=== PATIENT | female | born 1950 | race Caucasian/White ===

== ENCOUNTER 2021-12-21 13:30 | Outpatient (RCR) | payer MEDICARE, OTHER, SELFPAY ==
--- NOTE | 2021-11-25 08:12 | STOPEVAL ---
VOICE EVALUATION Thank you for referring Yesica Deshpande to [facility].? The patient is scheduled to be seen for therapy? 2x/week for 4 weeks. Please review, sign, date and return this plan of care JB. I agree with and certify that the following plan of care is medically necessary. Referring Physician Date Attending Provider: Ernie Marie MD Referring Provider: Ernie Marie MD Therapy Assessment Status Assessment Status Assessment Status Evaluation Outpatient Past Medical History Past Medical History Source of Past Medical History Patient Pain Assessment Timing of Pain Assessment Timing of Pain Assessment Assessment Self Report Self Report Pain Level 0 Pain Score Pain Score 0: Self Report Voice Evaluation Voice History Voice History The patient reports that she has a scratchy throat and her voice is not as loud as it had been. Patient stated that she likes to sing in the car but I can't reach those notes and I can't hardly sing unless it is low. 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 Very hard to hit the higher notes. She reports that Dr. Marie found that her vocal cords had issues, more than just normal aging. She reports she frequently has to clear her throat. More recent realization that voice is change. Sounds scratchy , drinks a lot of water, sinus issues/ allergies. Lisinopril. Onset & Duration of Problem Over time Laryngeal Pain No Better Situations Patient reported that she can talk most of the time and people can hear her. Worse Situations for Voice Use Most noticeable when she tries to sing or in the evening when she has been talking a lot. Description of Daily Voice Use Typical day, talk to . Does not sing unless driving or working around the house. 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 Provider Consulted No Allergies Yes History of Trauma/Injury to the No Laryngea
--- NOTE | 2021-12-21 14:56 | STOPEVAL ---
PROGRESS NOTE AND DISCHARGE SUMMARY Thank you for referring Yesica Deshpande to [facility].? This patient is being discharged at this time due to achieving goals and home program established. I agree with and certify that I am aware of patient's discharge from Speech Therapy. Referring Physician Date Attending Provider: Ernie Marie MD Referring Provider: Ernie Marie MD Therapy Assessment Status Assessment Status Assessment Status Discharge Outpatient Past Medical History Past Medical History Source of Past Medical History Patient Pain Assessment Timing of Pain Assessment Timing of Pain Assessment Pre-Treatment Self Report Self Report Pain Level 0 Pain Score Pain Score 0: Self Report ST Clinical Summary Clinical Summary ST Clinical Summary This patient was seen for an initial Voice Evaluation and three treatment sessions to address dysphonia. She was instructed in the use of vocal hygiene program and gastroesophageal reflux disease precautions; she voiced and demonstrated good understanding of each of these and based on a checklist she read, determined that she felt GERD had contributed to her hoarse voice. She also was instructed in respiration/ phonation coordination tasks and relaxation techniques for the larynx and neck areas and voiced good understanding of these tasks, also reporting that she felt they had been helpful in reducing the tension in her voice and neck. Patient was also instructed to practice elevating her pitch when speaking and found that successful. Initially she sustained an ah sound for a range of 8.3 seconds to 15.0 with a decibel level range of 67-69, and frequency range of 172-184. Today she sustained an ah sound for 18.8 seconds, with a decibel average of 77, and a frequency average of 228 hz. Patient reports she feels her
== END 2021-12-22 09:41 | disposition home or self-care (01) ==
LOC: ANHST 13:30
PROVIDERS: PCP Family Medicine; Referring Provider Otolaryngology; Visit Provider Otolaryngology
DX: R49.0 Dysphonia (principal); J38.7 Other diseases of larynx
CPT/HCPCS: 92507; 92524

== ENCOUNTER 2023-02-06 11:51 | Outpatient (CLI) | payer MEDICARE, OTHER, SELFPAY ==
[2023-02-06 14:36] LABS: Basophils Absolute Auto 0.1 K/mm3 (0.0-0.1); Basophils Percent Auto 0.8 % (0.2-1.2); Eosinophils Absolute Auto 0.2 K/mm3 (0-0.3); Eosinophils Percent Auto 2.1 % (0-4.4); Hematocrit 39.3 % (37.0-47.0); Immature Granulocyte Absolute 0.02 K/mm3 (0.00-0.031); Immature Granulocyte Percent A 0.3 % (0-0.5); Lymphocytes Absolute Auto 2.33 K/mm3 (0.9-3.2); Mean Corpuscular HGB Conc 33.1 g/dl (32-36); Mean Corpuscular Volume 93.6 fl (80-100); Mean Platelet Volume 9.2 fl (7.4-10.4); Monocytes Absolute Auto 0.7 K/mm3 (0.1-0.6); Monocytes Percent Auto 10.2 % (2.6-8.5); Neutrophils Absolute Auto 3.8 K/mm3 (1.3-6.7); Neutrophils Percent Auto 53.6 % (45.5-73.1); Platelet Count Result 268 k/mm3 (150-375); Red Cell Distribution Width 12.3 % (11.5-14.5); White Blood Count 7.1 K/mm3 (4.5-10.0)
[2023-02-06 14:45] LABS: INR 0.9
[2023-02-06 14:46] LABS: Partial Thromboplastin Time 27.9 SECONDS (22.3-36.8)
[2023-02-06 14:49] LABS: Alanine Aminotransferase 59 U/L (6-35); Albumin Level 4.2 g/dL (3.5-5.1); Alkaline Phosphatase 48 U/L (38-126); Anion Gap 7 mmol/L (8-16); Aspartate Amino Transferase 49 U/L (14-36); Bilirubin,Total 0.3 mg/dL (0.2-1.3); Blood Urea Nitrogen 17 mg/dL (7-17); Calcium 8.9 mg/dL (8.4-10.2); Carbon Dioxide 28 mmol/L (22-30); Chloride 104 mmol/L (98-107); Estimated Glomerular Filt Rate > 60; Glucose 74 mg/dL (65-110); Sodium 139 mmol/L (137-145)
== END 2023-02-06 11:52 | disposition home or self-care (01) ==
LOC: ANHSURGERY 11:58
PROVIDERS: PCP Family Medicine; Visit Provider Urology
DX: N81.3 Complete uterovaginal prolapse (principal); Z01.818 Encounter for other preprocedural examination
CPT/HCPCS: 36415; 80053; 85025; 85610; 85730; 86850; 86900; 86901

== ENCOUNTER 2023-02-13 00:49 | Day surgery (SDC) | payer MEDICARE, OTHER, SELFPAY ==
[2023-02-06 12:31] VITALS: BMI 27.7
--- NOTE | 2023-02-06 12:47 | PC.NURSE ---
Report to the Outpatient Waiting Room, entrance under the green pavilion located off [facility], at time __6:00AM on date __02/13/23 . Planned Procedure Time: __7:30AM . Time changes happen often and if your time is changed the preop area will call you the afternoon before. - You and your visitor will be asked to self-screen and do not enter if you have any COVID symptoms. - A mask is optional within the hospital at this time. Patients may have clear liquids (water, carbonated beverages, clear teas, apple juice) until 3 hours prior to surgery with a maximum of 20 ounces. - No food from midnight until time of surgery Take the following medications with a SIP of water the morning of surgery: ___METOPROLOL, EYE DROPS DO NOT STOP ANY OF YOUR OTHER PRESCRIPTION MEDICATIONS PRIOR TO SURGERY ?EXCEPT THE FOLLOWING Medications to discontinue per physician ___HOLD ALL VITAMINS/SUPPLEMENTS 3 DAYS PRE-OP PER ANESTHESIA Date to take last dose____02/09/23 Please no make-up, nail wolof, hairspray, perfume, deodorant, or body powder the day of surgery. No jewelry (including any body piercings) or valuables the day of surgery, leave them at home. Please take a shower or bath the night before, or the morning of, surgery with an antibacterial soap. Wear comfortable, loose fitting clothing. Children are encouraged to wear pajamas. - Jewelry must be removed prior to entering the operating room. Rings and piercings that are not removed may be cut off. - The hospital will not accept responsibility for valuables. - Please leave all valuables, including medications, at home the day of surgery. If you are going home after surgery, a licensed helper driver must drive you home. - NO public transportation without another adult if you receive anesthesia. - We recommend that an adult stay with you for 24 hours following discharge. - We also recommend that you do not drive, make important decision, drink alcoholic beverages, or take any drugs that were not prescribed by your health care provider for at least 24 hours after your discharge time. Follow any additional instructions given to you from your surgeon. If you or anyone in your household have experienced Covid symptoms in the past week, please notify your surgeon or the nurse liaison at the phone number below for possible testing. Telephone instructions given to __PATIENT and asked if any additional questions and then verbalized understanding. Patient advised to call surgeon office or pre surgery nurse liaison [phone] if any additional questions.
--- NOTE | 2023-02-08 07:54 | PM.IMHP ---
H&P: HPI History of Present Illness Date/Time: 02/08/23 07:54 Chief Complaint: Pelvic prolapse Narrative: A 73-year-old female admitted for supracervical hysterectomy bilateral salpingo being oophorectomy robotically secondary to uterine prolapse. She will undergo sacral colpopexy with Dr. De La Torre and possibly slip a sling due to stress incontinence. Risks and benefits reviewed in great detail. She had all questions answered and asked to proceed PMFSH Past Medical History Medical History Biliary and gallbladder disorder Family History Family History Mother Diabetes mellitus Hypertension Grandparent Cerebrovascular accident Social History Social History Smoking status: Never smoker Alcohol intake: current Drinks per week: 1 Substance use: never Living arrangements: with family Additional living arrangements comments: HUSB Spiritual care concerns: No Meds Home Medications and Allergies Home Medications Medication Instructions Recorded Confirmed Type cyclosporine 0.05 % eye drops 1 drp EACH EYE Q12H 10/14/21 02/06/23 History (Restasis MultiDose) doxycycline hyclate 50 mg tablet 50 mg PO BID 10/14/21 02/06/23 History lisinopril 40 mg tablet 40 mg PO HS 10/14/21 02/06/23 History metoprolol succinate 25 mg 25 mg PO QAM 10/14/21 02/06/23 History tablet,extended release 24 hr omeprazole 40 mg capsule,delayed 40 mg PO HS 10/14/21 02/06/23 History release ascorbic acid (vitamin C) 500 mg 250 mg PO DAILY 02/06/23 02/06/23 History tablet calcium citrate 315 mg-vitamin D3 1 tablet PO DAILY 02/06/23 02/06/23 History 5 mcg (200 unit) tablet carboxymethylcellulose sodium 0.25 1 drp EACH EYE 4-6XD PRN Dry Eye(S) 02/06/23 02/06/23 History % eye drops in a dropperette (TheraTears) denosumab 60 mg/mL subcutaneous 60 mg subcut [id number] 02/06/23 02/06/23 History syringe (Prolia) estradiol 0.01% (0.1 mg/gram) 0.1 applic vaginal 3XW 02/06/23 02/06/23 History vaginal cream magnesium 250 mg tablet 250 mg PO DAILY 02/06/23 02/06/23 History witufanbdyae-lsusiien-WD-omega 1 cap PO DAILY 02/06/23 02/06/23 History 3,6,9 #3 400 mcg capsule polyethylene glycol 3350 17 17 g PO DAILY 02/06/23 02/06/23 History gram/dose oral powder (Miralax) varenicline 0.03 mg/spray nasal 1 spray intranasal DAILY 02/06/23 02/06/23 History spray (Tyrvaya) vit A 7,160 unit-vit C 113 mg-vit 2 tablet PO DAILY 02/06/23 02/06/23 History E 100 qumo-sotz-bnowtl tablet Allergies Allergy/AdvReac Type Severity Reaction Status Date / Time hydrochlorothiazide Allergy Unknown Verified 02/06/23 12:14 hylan G-F 20 [From Synvisc] Allergy PAIN, Verified 02/06/23 12:14 SWELLING AT KNEE JOINT WHERE INJECTIONED lifitegrast [From Xiidra] Allergy REDNESS, Verified 02/06/23 12:14 SWELLING, PAIN AT EYE nitrofurantoin Allergy Unknown Verified 02/06/23 12:14 [From Macrobid] hydrocodone AdvReac Flushing Verified 02/06/23 12:14 NSAIDS (Non-Steroidal AdvReac AVOIDS R/T Verified 02/06/23 12:14 Anti-Inflamma KIDNEY FUNCTION demerol AdvReac Unknown Vomiting Uncoded 02/06/23 12:14 Exam Const: General: cooperative, healthy appearing, comfortable and average body habitus Orientation/consciousness: oriented to person, oriented to place and oriented to time HENMT: Head: normal to inspection Resp: Effort & Inspection: normal respiratory effort Cardio: Rate: regular rate Rhythm: regular rhythm Heart sounds: S1 normal heart sound present and S2 normal heart sound present GI: Inspection: normal to inspection : External Female Exam: normal external appearance (Uterine prolapse noted.) Speculum Exam - Cervix: normal appearance of the cervix Bimanual exam- vagina & uterus: soft Bimanual
--- NOTE | 2023-02-10 10:46 | PM.IMHP ---
H&P: HPI History of Present Illness Date/Time: 02/10/23 10:46 Chief Complaint: Pelvic organ prolapse Narrative: 73-year-old with uterine prolapse. She uses a pessary. This is not satisfactory for her. She has stress incontinence on urodynamic Review of Systems Review of Systems: All systems reviewed & are unremarkable except as noted in HPI and below PMFSH Past Medical History Medical History Biliary and gallbladder disorder Family History Family History Mother Diabetes mellitus Hypertension Grandparent Cerebrovascular accident Social History Social History Smoking status: Never smoker Alcohol intake: current Drinks per week: 1 Substance use: never Living arrangements: with family Additional living arrangements comments: GEE Spiritual care concerns: No Meds Home Medications and Allergies Home Medications Medication Instructions Recorded Confirmed Type cyclosporine 0.05 % eye drops 1 drp EACH EYE Q12H 10/14/21 02/06/23 History (Restasis MultiDose) doxycycline hyclate 50 mg tablet 50 mg PO BID 10/14/21 02/06/23 History lisinopril 40 mg tablet 40 mg PO HS 10/14/21 02/06/23 History metoprolol succinate 25 mg 25 mg PO QAM 10/14/21 02/06/23 History tablet,extended release 24 hr omeprazole 40 mg capsule,delayed 40 mg PO HS 10/14/21 02/06/23 History release ascorbic acid (vitamin C) 500 mg 250 mg PO DAILY 02/06/23 02/06/23 History tablet calcium citrate 315 mg-vitamin D3 1 tablet PO DAILY 02/06/23 02/06/23 History 5 mcg (200 unit) tablet carboxymethylcellulose sodium 0.25 1 drp EACH EYE 4-6XD PRN Dry Eye(S) 02/06/23 02/06/23 History % eye drops in a dropperette (TheraTears) denosumab 60 mg/mL subcutaneous 60 mg subcut [id number] 02/06/23 02/06/23 History syringe (Prolia) estradiol 0.01% (0.1 mg/gram) 0.1 applic vaginal 3XW 02/06/23 02/06/23 History vaginal cream magnesium 250 mg tablet 250 mg PO DAILY 02/06/23 02/06/23 History ijlkthmfonfo-seymqgec-WF-omega 1 cap PO DAILY 02/06/23 02/06/23 History 3,6,9 #3 400 mcg capsule polyethylene glycol 3350 17 17 g PO DAILY 02/06/23 02/06/23 History gram/dose oral powder (Miralax) varenicline 0.03 mg/spray nasal 1 spray intranasal DAILY 02/06/23 02/06/23 History spray (Tyrvaya) vit A 7,160 unit-vit C 113 mg-vit 2 tablet PO DAILY 02/06/23 02/06/23 History E 100 ydge-wfkr-nrpguf tablet Allergies Allergy/AdvReac Type Severity Reaction Status Date / Time hydrochlorothiazide Allergy Unknown Verified 02/06/23 12:14 hylan G-F 20 [From Synvisc] Allergy PAIN, Verified 02/06/23 12:14 SWELLING AT KNEE JOINT WHERE INJECTIONED lifitegrast [From Xiidra] Allergy REDNESS, Verified 02/06/23 12:14 SWELLING, PAIN AT EYE nitrofurantoin Allergy Unknown Verified 02/06/23 12:14 [From Macrobid] hydrocodone AdvReac Flushing Verified 02/06/23 12:14 NSAIDS (Non-Steroidal AdvReac AVOIDS R/T Verified 02/06/23 12:14 Anti-Inflamma KIDNEY FUNCTION demerol AdvReac Unknown Vomiting Uncoded 02/06/23 12:14 Exam Narrative: No acute distress Normal breathing Alert orient x3 Urethral hypermobility Uterine prolapse with loss of apical support Assessment and Plan Assessment and plan (1) MIA (stress urinary incontinence, female): Code(s): N39.3 - Stress incontinence (female) (male) Status: Acute Plan Robotic colpopexy with urethral sling. Understands risks of bleeding, infection, damage surrounding organs, damage to the urinary tract, diskitis, bowel injury, bowel obstruction, recurrence of prolapse, postoperative voiding dysfunction including incontinence and retention, hip and leg pain, dyspareunia, need for ancillary or recurrent procedures, recurrence of prolapse, mesh exposure or extrus
[2023-02-13] VITALS (12 sets, daily range): BP systolic 114–153; BP diastolic 52–82; PULSE 60–79; RESP 12–18; TEMP 36.2–37.1; O2SAT 97–100
[2023-02-13] MEDS: ACETAMINOPHEN 500 MG TABLET 1000 MG PO (06:30)
[2023-02-13] MEDS: LACTATED RINGERS 1,000 ML 30 ML IV CONT ×2 (06:30→10:24)
[2023-02-13] MEDS: KETOROLAC 15 MG/ML VIAL (*BKC) IV PUSH ×2 (06:30→14:42)
--- NOTE | 2023-02-13 06:48 | WPDHPUPDATE1 ---
History and Physical Update Update Date/Time: 02/13/23 06:48 History and Physical has been reviewed, including an updated exam of the patient. There are NO changes in the patient's condition. Risks, benefits, and alternatives have been discussed and questions answered. Patient agrees to proceed with procedure.
--- NOTE | 2023-02-13 07:16 | WPDHPUPDATE1 ---
History and Physical Update Update Date/Time: 02/13/23 07:16 History and Physical has been reviewed, including an updated exam of the patient. There are NO changes in the patient's condition. Risks, benefits, and alternatives have been discussed and questions answered. Patient agrees to proceed with procedure.
[2023-02-13] MEDS: metroNIDAZOLE 500 MG/ISO 100ML 500 MG/100 ML BAG 100 MG IVPB ×3 (07:30→22:30)
[2023-02-13] MEDS: ceFAZolin 2 GM/D5W 50 ML 2 GM/50 ML BAG IVPB (07:47)
[2023-02-13] MEDS: BUPIVACAINE/EPINEPHRINE 0.5% 30 ML VIAL INFILTRATE (08:04)
--- NOTE | 2023-02-13 08:22 | P.OP_ITS ---
Procedure Note - Detailed Date of Procedure 02/13/23 Pre-op Diagnosis complete uterovaginal prolapse Post-op Diagnosis Same Procedure Performed Robotic supracervical hysterectomy and bilateral salpingo-oophorectomy Surgeon Flavio Treviño MD Anesthesia General Indications 73-year-old female with uterine prolapse Findings Uterine prolapse. Small uterus ovaries and tubes Description of Procedure Patient was prepped draped in normal sterile fashion placed in dorsal lithotomy position. Under excellent general trach anesthesia weighted speculum placed posterior fornix vagina. Anterior lip cervix grasped with single-tooth tenaculum. Lerma's can inserted attached a single-tooth be used later for uterine manipulation. A 16 [place]ic catheter placed in bladder which was drained of clear urine. Dr. Britt capone took over from there for docking please see his operative report. Once robot had been docked the left round ligament grasped, burned, cut. Anteriorly a bladder flap was formed by sharply dissecting the peritoneum and reflecting this caudally away from the cervix uterus the opposite round ligament was clamped, burned, cut. The left infundibulopelvic structure was skeletonized to remove the left ovary tube clamped, burned, cut brought to level previous cut round ligament. In like fashion removing the right ovary and tube, the infundibulopelvic structure was skeletonized clamping burning cutting a brain this level of previously cut round ligament. Cardinal broad ligaments on the left and then serially skeletonized clamping burning cutting and hugging the cervix and uterus until the uterine vessels could be seen on the left. These were individually clamped, burned, cut. Following this the cardinal broad ligaments on the right were serially skeletonized clamping burning cutting and hugging the uterus and cervix into the uterine vessels could be seen on the right. These were individually clamped, burned, cut. Blanching of the uterus was noted and a a supracervical incision was made in the uterus tubes and ovaries were placed in an Endo-Catch. At that point Dr. De La Torre took over. Blood loss to this point was 5cc there were no complications up to this point Estimated Blood Loss 5 Drains No Packing No Pathology Yes Complications No immediate complications Condition Stable Disposition No change
--- NOTE | 2023-02-13 10:36 | W.PM.PROC2 ---
Procedure Note - Detailed Date of Procedure 02/13/23 Pre-op Diagnosis complete uterovaginal prolapse Stress incontinence Post-op Diagnosis Same Procedure Performed Robotic assisted laparoscopic sacral colpopexy Urethral sling Cystoscopy Surgeon Kamari De La Torre MD Anesthesia General Indications This is a woman with uterine prolapse as well as stress incontinence. She desires surgical correction. She is here for the above. She understands risks of bleeding, infection, diskitis, damage to surrounding organs, bowel injury, bowel obstruction, mesh related complications including exposure and extrusion, postoperative voiding dysfunction including incontinence and retention, need for ancillary procedures, dyspareunia, recurrence of prolapse, and other perioperative intraoperative postoperative complications. She agrees to proceed. Findings See below Description of Procedure She was correctly identified. Informed consent obtained. She from the operating room. She was given general anesthesia. She was given appropriate perioperative antibiotics. She was placed a low lithotomy position. Pressure points were padded. A time-out performed. I marked out the skin 3 fingerbreadths cephalad to the umbilicus. I anesthetized the skin. I incised the skin. I dissected down to the fascia. I grasped the fascia with Isha clamps. I entered the fascia sharply in a Bass type technique. I placed sutures for later fascial closure. I placed a midline trocar. I examined the abdomen. There is no sign of any injury. Under direct vision I placed 2 additional trocars in the right upper quadrant and 2 additional trocars the left upper quadrant. She was placed in steep Trendelenburg. The robot was docked. Her sedimentationist completed their portion of the procedure. Please see that operative report for details. I then sat at the console. The Sizer in the vagina created plane on the anterior and posterior vaginal wall. I took great care not to injure the vagina, bladder, or rectum. I introduced the mesh into the abdomen. I sewed the anterior leaflet of mesh on the anterior vaginal wall. I sewed the posterior leaflet of mesh on the posterior vaginal wall. This was done with several sutures of 2 0 Reading-Alin. I reflected the colon laterally. Of note the right iliac artery was deviated towards the midline almost over the sacral promontory. I opened the posterior peritoneum over the sacral promontory. I took great care not to injure the iliac artery. I carried this into the cul-de-sac. I freed up the edges for later retroperitonealization. I located the anterior longitudinal ligament the sacrum. I cleaned off all fatty tissues. I then tensioned my mesh appropriately. I did a vaginal exam the bedside. I assured prolapse reduction without undue tension. I then sewed the proximal leaflet of mesh onto the anterior longitudinal ligament of the sacrum with several sutures of 2 0 Reading-Alin. I then used a 2 0 Monocryl to completely and meticulously retroperitonealized all mesh. I allowed the colon to go back to its normal anatomic location. There is no sign of any impingement. The specimen was then removed. All ports removed. Fascia was tied down. An additional suture was placed to fully close the fascia. Skin was closed with Monocryl and surgical glue. She was repositioned and prepped for urethral sling. I marked out the inner thigh incisions. I anesthetized the skin and made the incisions. I then anesthetized the anterior vaginal wall at the mid urethra. I made a 1 cm incision. I dissected out laterally taking great care not to injure the refilled vaginal wall. I passed the helical trocars. I did this 1st on the left and then on the right. This was done from the thigh incision towards the vaginal incision. Sling was connected to the trocars and brought out the thigh incision. I tensioned the sling appropriately. I cut and the plastic sheaths. I closed
[2023-02-13] MEDS: fentaNYL CITRATE INJ (*CRX) 100 MCG/2 ML VIAL 25 MCG IV PUSH ×2 (10:40→10:46)
--- NOTE | 2023-02-13 11:32 | ADMGEN ---
This patient, Yesica Deshpande, was admitted to OB 2nd Floor Room 283-00. Patient/family oriented to hospital policies and general routines including ID bracelet, bed and alarms, visiting hours, pain management, procedures, bathroom and other care routines, personal items, smoking policy, room service/diet, and visiting hours. Information on how to activate the Rapid Response Team has been discussed. Patient/Family are encouraged to report perceived risks to care and to ask questions if they do not understand what they are told or what they should do.
[2023-02-13] MEDS: KCL 20 MEQ/D5/0.45% SOD CHL 1,000 ML 100 ML IV CONT (11:58)
[2023-02-13] MEDS: PROPARACAINE HCL 0.5% 15 ML OPHTH SOLN 1 DROP EACH EYE (13:38)
[2023-02-13] MEDS: DICLOFENAC SODIUM 0.1% OPHTH SOLN 2.5 ML BOTTLE 1 DROP EACH EYE ×2 (13:40→21:29)
[2023-02-13] MEDS: ceFAZolin 1 GM/NS 50 ML 1 GM/50 ML BAG IVPB ×2 (15:39→23:40)
[2023-02-13] MEDS: ONDANSETRON INJ 4 MG/2 ML VIAL IV PUSH (15:45)
[2023-02-13] MEDS: DOCUSATE SODIUM 100 MG CAPSULE PO (16:50)
[2023-02-13] MEDS: lisinopriL 20 MG TABLET 40 MG PO (20:00)
[2023-02-13] MEDS: traMADol HCL (*CRX) 50 MG TABLET PO (20:00)
[2023-02-13] MEDS: PANTOPRAZOLE 40 MG TABLET PO (20:00)
[2023-02-13] MEDS: cycloSPORINE 0.4 ML OPHTH SOLUTION 1 DROP EACH EYE (20:00)
[2023-02-13] MEDS: ACETAMINOPHEN 325 MG TABLET 650 MG PO (21:28)
[2023-02-13] MEDS: BENZOCAINE/MENTHOL (*BKC) 18 EA LOZENGE 1 LOZENGE PO (22:44)
[2023-02-14 05:05] VITALS: BP 139/65; PULSE 66; RESP 16; TEMP 36.6; O2SAT 100
[2023-02-14] MEDS: DOCUSATE SODIUM 100 MG CAPSULE PO (05:05)
[2023-02-14] MEDS: DICLOFENAC SODIUM 0.1% OPHTH SOLN 2.5 ML BOTTLE 1 DROP EACH EYE (05:05)
[2023-02-14] MEDS: ACETAMINOPHEN 325 MG TABLET 650 MG PO ×2 (05:05→10:22)
--- NOTE | 2023-02-14 06:25 | PM.DS ---
DS: Admitting Diagnosis Discharge Date 02/15/2020 Admitting Diagnosis uterine prolapse /stress urine incontinence DS: Summary Hospital Course Reason for hospitalization: patient was admitted 1st supracervical robotic hysterectomy bilateral salpingo-oophorectomy with sacral colpopexy and sling Hospital Course: patient's hospital course unremarkable remained afebrile. She was up, voiding without difficulty, eating regular diet, ambulating, and generally without complaints. Time Spent with Patient Time attestation: Total time spent providing and/or coordinating discharge services: Exam Const: General: cooperative, healthy appearing and comfortable Nutritional Appearance: average body habitus Orientation/consciousness: oriented to person, oriented to place and oriented to time HENMT: Head: normal to inspection Resp: Effort & Inspection: normal respiratory effort Cardio: Rate: regular rate Rhythm: regular rhythm Heart sounds: S1 normal heart sound present and S2 normal heart sound present GI: Inspection: normal to inspection and incision ( wounds are clean dry and intact) DS: Data Data Completed and Pending Pending studies at discharge: Pending at discharge 02/13/23 09:28 Surgical [PTH] Routine Discharge Plan Discharge Patient Disposition: Home, Self-Care Discharge Instructions: No lifting >20lb, exercise for 6 weeks No tub bath or pool for 2 weeks no intercourse weeks Stand Alone Forms: General Discharge Instructions Follow-up/Referrals: Kamari De La Torre MD [Physician] - (6 weeks) Flavio Diallo MD [Physician] - Discharge Medications: New docusate sodium [Colace] 100 mg capsule 100 mg PO BID Qty: 60 0RF tramadol 50 mg tablet 50 mg PO Q6H PRN (Reason: pain) Qty: 20 0RF Continued omeprazole 40 mg capsule,delayed release(DR/EC) 40 mg PO HS metoprolol succinate 25 mg tablet extended release 24 hr 25 mg PO QAM lisinopril 40 mg tablet 40 mg PO HS doxycycline hyclate 50 mg tablet 50 mg PO BID Restasis MultiDose 0.05 % drops 1 drp EACH EYE Q12H TheraTears 0.25 % Dropperette 1 drp EACH EYE 4-6XD PRN (Reason: Dry Eye(S)) estradiol 0.01 % (0.1 mg/gram) Cream 0.1 applic VAGINAL 3XW vit A-vit C-vit J-jmsl-tlispm 7,160-113-100 tgxd-zk-xumi Tablet 2 tablet PO DAILY Tyrvaya 0.03 mg/spray spray, metered, non-aerosol 1 spray INTRANASAL DAILY Prolia 60 mg/mL syringe 60 mg SUBCUT [id number] ascorbic acid (vitamin C) 500 mg Tablet 250 mg PO DAILY Rx Instructions: VITAMIN C,D AND ZINC CAPSULE magnesium 250 mg Tablet 250 mg PO DAILY polyethylene glycol 3350 [Miralax] 17 gram/dose Powder 17 g PO DAILY calcium citrate-vitamin D3 315 mg-5 mcg (200 unit) Tablet 1 tablet PO DAILY ke-kt-RT-[place] 3,6,9 #3 400 mcg Capsule 1 cap PO DAILY
--- NOTE | 2023-02-14 06:27 | PM.GYNPNOP ---
PUMPER HELPER - A/P Postoperative Procedures: Procedures Operation Date: 02/13/23 07:30 Actual Procedure Side Surgeon p Robotic Sacrocolpopexy, Kamari De La Torre MD s Urethral Sling Kamari De La Torre MD s Robotic Assisted Supracervical Hysterectomy with Bilateral Salpingo Oophorectomy Bilateral Flavio Treviño MD Postoperative day: 1 Postoperative status: doing well Postoperative plan: routine post-op care, see orders, advance diet and discharge Time Spent With Patient Time: Total time spent is greater than 50% in coordination of care (as documented) at patient's floor/unit and/or counseling patient: Time with patient: less than 15 minutes PUMPER HELPER- PN:Subj Post-Op Subjective Date/time seen: 02/14/23 06:27 Subjective: patient has no complaints, patient desires discharge, pain is well controlled and patient is tolerating oral intake Exam Const: General: cooperative, healthy appearing and comfortable Nutritional Appearance: average body habitus Orientation/consciousness: oriented to person, oriented to place and oriented to time Resp: Effort & Inspection: normal respiratory effort Cardio: Rate: regular rate Rhythm: regular rhythm Heart sounds: S1 normal heart sound present and S2 normal heart sound present GI: Inspection: normal to inspection and incision ( incisions are clean dry and intact) PUMPER HELPER - PN: Obj Data Vital Signs Vital Signs: Vital Signs - 24 hr 02/13/23 07:00 02/13/23 10:13 02/13/23 10:25 Temperature 98.1 F 97.2 F L Pulse Rate 79 77 73 Respiratory Rate 16 12 14 Blood Pressure 153/82 H 128/54 L 134/72 Pulse Oximetry 98 99 100 Oxygen Delivery Room Air Simple Face Mask Simple Face Mask Oxygen Flow Rate 8 8 02/13/23 10:40 02/13/23 10:55 02/13/23 11:10 Temperature Pulse Rate 63 60 66 Respiratory Rate 12 12 12 Blood Pressure 133/58 L 116/52 L 114/54 L Pulse Oximetry 100 98 98 Oxygen Delivery Simple Face Mask Room Air Room Air Oxygen Flow Rate 8 02/13/23 11:20 02/13/23 11:35 02/13/23 11:35 Temperature 97.4 F L Pulse Rate 61 64 Respiratory Rate 12 16 Blood Pressure 118/55 L 129/60 Pulse Oximetry 99 100 Oxygen Delivery Room Air Room Air Oxygen Flow Rate 02/13/23 15:30 02/13/23 15:30 02/13/23 20:00 Temperature 98.7 F Pulse Rate 71 Respiratory Rate 18 Blood Pressure 118/65 Pulse Oximetry 100 Oxygen Delivery Room Air Room Air Oxygen Flow Rate 02/13/23 20:00 02/13/23 23:00 02/13/23 23:40 Temperature 98.3 F Pulse Rate 74 72 Respiratory Rate 18 Blood Pressure 146/70 H Pulse Oximetry 100 97 Oxygen Delivery CPAP CPAP Oxygen Flow Rate 02/13/23 23:40 02/14/23 05:05 02/14/23 05:05 Temperature 98.3 F 97.9 F Pulse Rate 72 66 Respiratory Rate 18 16 Blood Pressure 125/54 L 139/65 Pulse Oximetry 99 100 Oxygen Delivery Room Air Oxygen Flow Rate Intake/Output Intake/Output: Intake & Output 02/11/23 02/12/23 02/13/23 02/14/23 23:59 23:59 23:59 23:59 Intake Total 2300 650 Output Total 2325 1950 Balance -25 -1300 Meds/Results Medications: Active Medications Generic Name Dose Route Start Last Admin Trade Name Freq PRN Reason Stop Dose Admin Acetaminophen 650 mg 02/13/23 11:26 02/14/23 05:05 Acetaminophen 325 Mg Tablet PO 650 mg Q4H PRN Administration Mild Pain (1-3) or Fever Artificial Tears 1 drop 02/13/23 12:00 Artificial Tears Ophth Soln 15 Ml Bottle EACH EYE Q4H PRN Dry Eye(S) Artificial Tears 1 drop 02/13/23 12:34 Artificial Tears Ophth Soln 15 Ml Bottle EACH EYE Q2H PRN Dry Eye(s) Benzocaine 1 lozenge 02/13/23 21:06 02/13/23 22:44 Benzocaine/Menthol (*Bkc) 18 Ea Lozenge PO 1 lozenge PRN PRN Administration Sore Throat Cephalexin HCl 500 mg 02/14/23 13:00 Cephalexin 500 Mg Capsule PO QID CAREY Cyclosporine 1 drop 02/13/23 12:00 02/13/23 20:00 Cyclosporine 0.4 Ml Ophth Solution EACH EYE 1 drop Q12HR CAREY Adm
[2023-02-14] MEDS: ARTIFICIAL TEARS OPHTH SOLN 15 ML BOTTLE 1 DROP EACH EYE (07:00)
[2023-02-14 08:35] VITALS: BP 182/80; PULSE 74; RESP 16; TEMP 36.8; O2SAT 99
--- NOTE | 2023-02-14 08:35 | WPDANESPN ---
Anes - Prog Note Post-Op Date/Time: 02/14/23 08:35 Cardiovascular status: normal Respiratory status: normal Airway patency: baseline Mental status: baseline Post-Op hydration status: normal Vital Signs: Last Vital Signs Temp 36.6 C 02/14/23 05:05 Pulse 66 02/14/23 05:05 Resp 16 02/14/23 05:05 BP 139/65 02/14/23 05:05 Pulse Ox 100 02/14/23 05:05 O2 Del Method Room Air 02/14/23 05:05 O2 Flow Rate 8 02/13/23 10:40 Pain Score (VAS): 2/10 I/O: Intake & Output 02/13/23 02/14/23 02/14/23 23:59 07:59 15:59 Intake Total 1950 650 Output Total 1350 1950 Balance 600 -1300 Post-procedural complaints: none Patient Feedback: Patient satisfied with anesthetic care. Other Findings: sore throat/ swollen lower lip. throat losenges orderd and helpful
[2023-02-14 09:52] VITALS: PULSE 80
[2023-02-14] MEDS: METOPROLOL SUCCINATE EXT REL 25 MG TABCR PO (09:52)
[2023-02-14] MEDS: CEPHALEXIN 500 MG CAPSULE PO (09:53)
[2023-02-14] MEDS: cycloSPORINE 0.4 ML OPHTH SOLUTION 1 DROP EACH EYE (09:58)
[2023-02-14] MEDS: metroNIDAZOLE 500 MG/ISO 100ML 500 MG/100 ML BAG 100 MG IVPB (10:01)
[2023-02-14] MEDS: BENZOCAINE/MENTHOL (*BKC) 18 EA LOZENGE 1 LOZENGE PO (10:02)
== END 2023-02-14 11:35 | disposition home or self-care (01) ==
LOC: ANHSURGERY 07:32 → ANHOB2 11:32
PROVIDERS: Obstetrics & Gynecology; PCP Family Medicine; Visit Provider Urology
PROC: (CPT 57425; principal; 2023-02-13 07:30)
PROC: (CPT 57288; 2023-02-13 07:30)
PROC: (CPT 58542; 2023-02-13 07:30)
DX: N81.3 Complete uterovaginal prolapse (principal); N93.9 Abnormal uterine and vaginal bleeding, unspecified; N80.03 Adenomyosis of the uterus; D25.1 Intramural leiomyoma of uterus
CPT/HCPCS: 57288; 57425; 58542; S2900 ×2; 88307; 99199; A9270; C1771; C1781; J0690; J1100; J1836; J1885; J2405; J2704; J3010; J3480; J7030; J7120